=== PATIENT | male | born 1995 ===

== ENCOUNTER 2023-01-19 16:03 | Outpatient (AMB) | payer OTHER, SELFPAY ==
--- NOTE | 2023-01-19 16:10 | MHC.PC.OV ---
Vital Signs 01/19/23 16:14 Height 5 ft 10.5 in Weight 174 lb 8 oz BMI 24.7 BP 124/82 Blood Pressure Location Lt brachial Position Sitting Pulse 52 Pulse Source Pulse Oximeter Pulse Oximetry (%) 98 Oxygen Delivery Method Room Air Intake Visit Reasons: COURT ORDERLY/Hypertension/Med review Folder And Notcher Required: No Accompanied by: Self / Same As Patient Allergies Seasonal Allergies Allergy (Severe, Verified 01/19/23 17:00) Sneezing Medication List - Last Reconciled 01/19/23 by Clifford Mendez MD amlodipine 10 mg PO DAILY hydrochlorothiazide 25 mg PO DAILY metoprolol succinate ER 100 mg PO DAILY Tobacco use date assessed: 01/19/23 Dental Screening Dental Screen Date: 01/19/23 Did you have a dental visit in the last 12 months?: Yes Did you have a dental problem in the last 6 months where you did not have access to dental care?: No Was dental information given to patient?: Patient has dentist HPI COURT ORDERLY/Hypertension/Med review HPI Details Patient comes in today for his annual physical examination and to establish care - is a new patient to the practice States that he has not seen a doctor in a few years now States that he has has been on blood pressure medications that he was started by Dr. Heredia a few years ago although he relates that he's had high blood pressure (recalls being on Lisinopril) since he was about 13 y/o Relates that he has been experiencing some recurrent sharp chest pains over his left lower chest wall area lately - notes that these pain occur irregardless of activity or exertion States that he feels okay otherwise and denies any headaches or dizziness Denies any SOB No nausea/vomiting, no abdominal pain Adds that he gets constipated at times and lately, often has some sharp rectal or prerirectal pain when he is moving his bowels Has not noticed any blood in his stool lately but he would like to see if he can get this checked out - is inquiring as well if he needs to have a colonoscopy done States that as far as he is aware of, he has no significant family history or increased risk of colon cancer He denies any acute urinary symptoms PFSH Medical History Essential hypertension Surgical History No pertinent past surgical history Family History Other Diabetes Hypertension Social History (Updated 01/19/23 @ 17:04 by Clifford Mendez MD) Housing: Apartment Alcohol intake: current Alcohol intake frequency: holidays/special occasions only Patient Tobacco Use Status: Never used Tobacco e-Cigarette/Vaping Use: Currently Using Substance Use Type: Marijuana service: No Current occupational status: employed Current occupational exposures/hazards: No Cognitive needs: No Hearing needs: No Vision needs: No Questionnaire PHQ-9 Over the last 2 weeks, how often have you been bothered by any of the following problems? 1. Little interest or pleasure in doing things: not at all 2. Feeling down, depressed, or hopeless: not at all 3. Trouble falling or staying asleep, or sleeping too much: not at all 4. Feeling tired or having little energy: not at all 5. Poor appetite or overeating: not at all 6. Feeling bad about yourself - or that you are a failure or have let yourself or your family down: not at all 7. Trouble concentrating on things, such as reading the newspaper or watching television: not at all 8. Moving or speaking so slowly that other people could have noticed. Or the opposite - being so fidgety or restless that you have been moving around a lot more than usual: not at all 9. Thoughts that you would be better off or of hurting yourself in some way: not at all Total score: 0 Depression Screening Interpretation: Negative Depression Screening Done: Yes 45850 - PHQ-9 Billing: Yes Source: Developed by Drs. Jose Ortez, Raquel Carlos, Keshav Walls and colleagues, with an educational marianela from [employer]. Thrive Questionnaire Date Thrive assessed: 01/19/23 I am a: Patient What is your living situation today?: I have a steady place to live Within the past 12 months, did the food you bought not last and you didn't have the money to get more?: Never true Within the past 12 months, did you worry whether your food would run out before you got money to buy more?: Never true Do you have trouble paying for medicines?: No Do you have trouble getting transportation to medical appointments?: No Do you have trouble paying your heating and electricity bill?: No Do you have trouble taking care of your child, family member or friend?: No Do you have trouble with day-to-day activities such as bathing, preparing meals, shopping, managing finances, etc.?: No Are you currently unemployed and looking for a job?: No Are you interested in more education?: No Please select the resources that you would like help with: None Currently or been in a relationship where the following occur: no concerns reported AUDIT C Alcohol Use Questionnaire (AUDIT-C) 1. How often do you have a drink containing alcohol?: Monthly or less 2. How many drinks containing alcohol do you have on a typical day when you are drinking?: 1 or 2 3. How often do you have six or more drinks on one occasion?: Never Total Score: 1 Score Reviewed/Action Taken: Yes YUDITH-7 AMB Questionnaire YUDITH-7 Date YUDITH - 7 assessed: 01/19/23 Feeling nervous, anxious, or on edge: 0 = Not at all Not being able to stop or control worryin = Not at all Worrying too much about different things: 0 = Not at all Trouble relaxin = Not at all Being so restless that it is hard to sit still: 0 = Not at all Becoming easily annoyed or irritable: 0 = Not at all Feeling afraid as if something awful might happen: 0 = Not at all Total YUDITH-7 score (0-4 normal; 5-9 mild; 10-14 moderate; 15-21 severe): 0 Source: Developed by Drs. Jose Ortez, Raquel Carlos, Keshav Walls and colleagues, with an educational marianela from [employer]. Review of Systems Const Denies chills, Denies fatigue, Denies fever(s), Denies headache(s), Denies malaise and Denies weakness Eyes Denies blurry vision, Denies change in vision, Denies irritation and Denies itchy eyes ENT Denies dysphagia, Denies dizziness, Denies otalgia, Denies headache(s), Denies nasal congestion, Denies neck pain, Denies odynophagia and Denies sore throat Card Reports chest pain (on and off sharp pains over the left lower chest wall), Denies rapid heart rate, Denies irregular heart rhythm, Denies palpitations and Denies dyspnea Resp Denies chest congestion, Denies cough, Denies dyspnea and Denies wheezing GI Details: reports (+) on and off rectal/perirectal pain during bowel movements Denies abdominal pain, Denies bloating, Denies hematochezia, Reports constipation (on and off), Denies dysphagia, Denies heartburn, Denies diarrhea, Denies nausea, Denies odynophagia and Denies vomiting Denies hematuria, Denies difficulty urinating, Denies dysuria, Denies urinary frequency and Denies urinary urgency Musc Denies back pain, Denies arthralgias, Denies joint swelling, Denies muscle weakness and Denies neck pain Skin/Breast Denies change in pigmentation, Denies lesions, Denies rash and Denies unusual bruising Neuro Denies dizziness, Denies headache(s), Denies paresthesias and Denies weakness Endo Denies fatigue and Denies palpitations Aller/Immun Denies itchy eyes and Denies wheezing Physical exam (Primary Care) Vital Signs: Last Vital Signs Pulse 52 01/19/23 16:14 BP 124/82 01/19/23 16:14 Pulse Ox 98 01/19/23 16:14 Oxygen Delivery Method Room Air 01/19/23 16:14 BMI result Body Mass Index 24.7 Tobacco/Smoking Status: Tobacco use Status Tobacco use date assessed 01/19/23 01/19/23 16:20 Patient Tobacco Use Status Never used Tobacco 01/19/23 17:04 e-Cigarette/Vaping Use Currently Using 01/19/23 17:04 PHQ-9: PHQ-9 Score PHQ-9: Total score 0 01/19/23 17:05 Depression Screening Interpretation: Negative Thrive Assessment: Date of Thrive Assessment Date Thrive assessed 01/19/23 01/19/23 16:20 Currently or been in a relationship where the following occur: no concerns reported Const General: no acute distress, alert and awake Orientation/consciousness: patient oriented x3 HENMT Head: Yes normocephalic and Yes atraumatic Ears: external ears normal, TM's normal bilaterally and EAC's normal General nose exam: No nasal discharge present Face and sinus: Yes normal facial exam and Yes sinuses nontender Teeth and gingiva: dentition normal Throat: Yes posterior oropharynx normal and Yes tonsils normal (no TP congestion) Eyes Eyelids: Yes eyelids normal Conjunctivae: conjunctivae normal Pupils: Equal, round and reactive pupils present EOM: EOMs intact bilaterally Neck Neck: Yes no lymphadenopathy and Yes supple Thyroid: Thyroid normal Resp Auscultation: clear to auscultation bilaterally, no rales and no wheezes Cardio Rate: regular rate Rhythm: regular rhythm Heart sounds: no murmurs GI Palpation (GI): Soft to palpation, nontender and No hepatosplenomegaly present Auscultation: normal bowel sounds General: Yes no CVA tenderness Back/Spine/Pelvis Back: no CVA tenderness Thoracic/Lumbar Spine: thoracic and lumbar spine normal to inspection Skin Lesions: no lesions Rashes: no rashes Neuro General: patient oriented x3, moves all extremities, no focal motor deficits and CN's II-XI intact bilaterally Cranial nerves: Yes Equal, round and reactive pupils present Cognition (Neuro): normal cognition Gait exam (Neuro): Normal gait present Extrem General: Yes no clubbing, cyanosis or edema Assessment and Plan Assessment & Plan (1) Annual physical exam: Code(s): Z00.00 - Encounter for general adult medical examination without abnormal findings Plan: Check labs (2) Essential hypertension: Code(s): I10 - Essential (primary) hypertension Plan: Reinforced low sodium diet Continue Amlodipine 10 mg QD, HCTZ 25 mg QD and Metoprolol ER 100 mg QD - Rx refilled Will send patient for chest x-rays and EKG for risk stratification as he appears to have a strong genetic component for HBP since he's had HTN since he was a teenager (3) Chest pain: Code(s): R07.9 - Chest pain, unspecified Qualifiers: Chest pain type: unspecified Qualified Code(s): R07.9 - Chest pain, unspecified Plan: Patient is advised that his on and off sharp chest pains are most likely musculoskeletal pain, based on his description of his symptoms He is being sent for chest x-rays and EKG as well for risk stratification and advised that these should provide us with additional information regarding his recurrent sharp chest pains (4) Rectal pain: Code(s): K62.89 - Other specified diseases of anus and rectum Plan: Advised that his recent rectal/perirectal pains are most likely due to his on and off constipation and need to strain during bowel movements but per request, will refer him to GI for further evaluation and management Plan Follow up in 3 months Orders: Orders Complete Blood Count Auto Diff 01/20/23 I10 - Essential (primary) hypertension Lipid Panel 01/20/23 E78.00 - Pure hypercholesterolemia, unspecified TSH reflex Free T4 01/20/23 E78.00 - Pure hypercholesterolemia, unspecified Vitamin D 25-OH Total 01/20/23 E55.9 - Vitamin D deficiency, unspecified XR chest 2V 01/20/23 I10 - Essential (primary) hypertension, R07.9 - Chest pain, unspecified Comprehensive [place]. Panel Fast 01/20/23 E78.00 - Pure hypercholesterolemia, unspecified UA CC w/rflx Micro + Cult 01/20/23 R30.0 - Dysuria ECG 12 lead EKG 01/19/23 I10 - Essential (primary) hypertension, R07.9 - Chest pain, unspecified Referrals Gastroenterology Referral K62.89 - Other specified diseases of anus and rectum Medications: New hydrochlorothiazide 25 mg PO DAILY 90 days 90 tabs 1RF metoprolol succinate ER 100 mg PO DAILY 90 days 90 tabs 1RF amlodipine 10 mg PO DAILY 90 days 90 tabs 1RF Coding Level of Care Code New Pt Prev Care 18-39yr([id number] Diagnoses Annual physical exam Z00.00 Essential hypertension I10 Chest pain, unspecified type R07.9 Chest pain type: unspecified Rectal pain K62.89
[2023-01-19 16:14] VITALS: BP 124/82; PULSE 52; O2SAT 98; BMI 24.7
== END 2023-01-19 17:16 | disposition home or self-care (01) ==
PROVIDERS: PCP Internal Medicine; Visit Provider Internal Medicine
DX: Z00.00 Encounter for general adult medical examination without abnormal findings (principal); I10 Essential (primary) hypertension; R07.9 Chest pain, unspecified; K62.89 Other specified diseases of anus and rectum
CPT/HCPCS: 99385

== ENCOUNTER 2023-01-20 07:05 | Outpatient (REF) | payer OTHER, SELFPAY ==
--- NOTE | ~2023-01-20 | XR_ITS ---
EXAMINATION: XR CHEST CLINICAL INFORMATION: Essential hypertension COMPARISON: None available. TECHNIQUE: 2 views of the chest were obtained. FINDINGS: The lungs are well-inflated. The heart size is normal. There is no gross pneumothorax. No pleural effusion. XR/XR chest 2V IMPRESSION: No evidence of pneumonia. Well-inflated lungs.
[2023-01-20 07:27] LABS: MANUAL DIFF FLAG NO
[2023-01-20 07:36] LABS: Basophils Percent Auto 0.5 % (0-2); Eosinophils Absolute Auto 0.3 X10*3/uL (0.0-0.4); Eosinophils Percent Auto 6.1 % (0-4); Hematocrit 46.9 % (42.0-52.0); Hemoglobin 16.4 g/dl (14.0-18.0); Imm Gran Abs Auto 0.01 X10*3/uL (0.00-0.03); Imm Gran Pct Auto 0.2 % (0.0-0.4); Lymphocytes Absolute Auto 1.7 X10*3/uL (1.2-4.9); Lymphocytes Percent Auto 41.4 % (20-40); Mean Corpuscular Hemoglobin 30.7 pg (27.0-33.0); Mean Corpuscular Volume 87.8 fL (80.0-98.0); Monocytes Absolute Auto 0.6 X10*3/uL (0.1-1.2); Monocytes Percent Auto 13.9 % (2-11); Neutrophils Absolute Auto 1.6 x10*3/uL (2.0-8.3); Neutrophils Percent Auto 37.9 % (45-73); Platelet Count 221 X10*3/uL (160-400); Red Blood Count 5.34 X10*6/uL (4.60-5.80); Red Cell Distribution Width 12.7 % (11.0-16.0); White Blood Count 4.1 X10*3/uL (4.8-10.8)
[2023-01-20 08:08] LABS: Alanine Aminotransferase 13 U/L (0-40); Albumin Level 4.5 g/dL (3.5-5.0); Alkaline Phosphatase 58 U/L (39-117); Anion Gap 12 (12-20); Aspartate Amino Transferase 19 U/L (5-37); Bilirubin Total 1.2 mg/dL (0.0-1.0); Blood Urea Nitrogen 16 mg/dL (9-16); Calcium 9.9 mg/dL (8.4-10.2); Carbon Dioxide 28 mmol/L (22-29); Chloride 103 mmol/L (96-108); Cholesterol 220 mg/dL (<200); Estimated Glomerular Filt Rate > 60; Glucose Fasting 83 mg/dL (60-99); HDL Cholesterol 71 mg/dL (>40); LDL Cholesterol Calculated 140 mg/dL (<100); Potassium 3.7 mmol/L (3.3-5.1); Sodium 139 mmol/L (135-145); Total Protein 7.7 g/dL (6.5-8.0); Triglycerides 47 mg/dL (<150)
[2023-01-20 08:26] LABS: TSH reflex Free T4 1.07 uIU/mL (0.32-4.0); Vitamin D 25-OH Total 22.7 ng/mL (>30)
[2023-01-20 11:34] LABS: Appearance Urine Clear; Color Urine Yellow; Glucose Urine UA Negative (Negative); Leukocyte Esterase Urine Negative (Negative); Nitrite Urine Negative (Negative); Specific Gravity - Urine 1.015 (1.005-1.025); Urine Blood Negative (Negative); Urine Ketones Negative (Negative); Urine Protein Negative (Neg-Trace)
== END 2023-01-20 07:06 | disposition home or self-care (01) ==
LOC: HO.XRAY 07:05
PROVIDERS: PCP Internal Medicine; Visit Provider Internal Medicine
DX: R07.9 Chest pain, unspecified (principal); I10 Essential (primary) hypertension; E78.00 Pure hypercholesterolemia, unspecified; E55.9 Vitamin D deficiency, unspecified; R30.0 Dysuria
CPT/HCPCS: 36415; 71046; 80053; 80061; 81003; 82306; 84443; 85025

== ENCOUNTER 2023-05-04 16:04 | Outpatient (AMB) | payer OTHER, SELFPAY ==
[2023-05-04 16:19] VITALS: BP 162/110; PULSE 54; RESP 16; O2SAT 98; BMI 23.1
--- NOTE | 2023-05-04 16:19 | A.OFFPC_ITS ---
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 Accompanied by: Self / Same As Patient Allergies Seasonal Allergies Allergy (Severe, Verified 05/04/23 16:48) Sneezing Medication List - Last Reconciled 05/04/23 by Clifford Mendez MD amlodipine 10 mg PO DAILY 90 days hydrochlorothiazide 25 mg PO DAILY 90 days metoprolol succinate ER 100 mg PO DAILY 90 days Tobacco use date assessed: 05/04/23 Dental Screening Dental Screen Date: 05/04/23 Did you have a dental visit in the last 12 months?: Yes Did you have a dental problem in the last 6 months where you did not have access to dental care?: No Was dental information given to patient?: Patient has dentist HPI 3 month f/u HPI Details Patient comes in today for his follow up visit He recently sustained some injuries wherein he ruptured his left patellar tendon and fractured his left elbow Just had surgery to his left elbow and left knee last month on 04/09/23 at [facility], and states that he was just cleared for rehab and started his physical therapy yesterday His left knee and leg is still in a soft cast/immobilizer and he just had his left elbow cast removed a couple of days ago Patient states that he feels okay otherwise He denies any headaches or dizziness Denies any chest pains, no SOB No nausea/vomiting, no abdominal pain No change in bowel habits noted Would like to go over the results of his labs done back in January 2023 after his annual physical exam visit [facility] Medical History Vitamin D deficiency Pure hypercholesterolemia Essential hypertension Surgical History History of left knee surgery History of elbow surgery Family History Other Diabetes Hypertension Social History Housing: Apartment Alcohol intake: current Alcohol intake frequency: holidays/special occasions only Patient Tobacco Use Status: Never used Tobacco e-Cigarette/Vaping Use: Currently Using Substance Use Type: Marijuana service: No Current occupational status: employed Current occupational exposures/hazards: No Cognitive needs: No Hearing needs: No Vision needs: No Questionnaire PHQ-9 Over the last 2 weeks, how often have you been bothered by any of the following problems? 1. Little interest or pleasure in doing things: not at all 2. Feeling down, depressed, or hopeless: not at all 3. Trouble falling or staying asleep, or sleeping too much: not at all 4. Feeling tired or having little energy: not at all 5. Poor appetite or overeating: not at all 6. Feeling bad about yourself - or that you are a failure or have let yourself or your family down: not at all 7. Trouble concentrating on things, such as reading the newspaper or watching television: not at all 8. Moving or speaking so slowly that other people could have noticed. Or the opposite - being so fidgety or restless that you have been moving around a lot more than usual: not at all 9. Thoughts that you would be better off or of hurting yourself in some way: not at all Total score: 0 Depression Screening Interpretation: Negative Depression Screening Done: Yes 06341 - PHQ-9 Billing: Yes Source: Developed by Drs. Jose Ortez, Raquel Carlos, Keshav Walls and colleagues, with an educational marianela from [employer]. Thrive Questionnaire Date Thrive assessed: 05/04/23 I am a: Patient What is your living situation today?: I have a steady place to live Within the past 12 months, did the food you bought not last and you didn't have the money to get more?: Never true Within the past 12 months, did you worry whether your food would run out before you got money to buy more?: Never true Do you have trouble paying for medicines?: No Do you have trouble getting transportation to medical appointments?: No Do you have trouble paying your heating and electricity bill?: No Do you have trouble taking care of your child, family member or friend?: No Do you have trouble with day-to-day activities such as bathing, preparing meals, shopping, managing finances, etc.?: No Are you currently unemployed and looking for a job?: No Are you interested in more education?: No Please select the resources that you would like help with: None Currently or been in a relationship where the following occur: no concerns reported THRIVE Score: 0 AUDIT C Alcohol Use Questionnaire (AUDIT-C) 1. How often do you have a drink containing alcohol?: Monthly or less 2. How many drinks containing alcohol do you have on a typical day when you are drinking?: 1 or 2 3. How often do you have six or more drinks on one occasion?: Never Total Score: 1 Score Reviewed/Action Taken: Yes YUDITH-7 AMB Questionnaire YUDITH-7 Date YUDITH - 7 assessed: 05/04/23 Feeling nervous, anxious, or on edge: 0 = Not at all Not being able to stop or control worryin = Not at all Worrying too much about different things: 0 = Not at all Trouble relaxin = Not at all Being so restless that it is hard to sit still: 0 = Not at all Becoming easily annoyed or irritable: 0 = Not at all Feeling afraid as if something awful might happen: 0 = Not at all Total YUDITH-7 score (0-4 normal; 5-9 mild; 10-14 moderate; 15-21 severe): 0 Source: Developed by Drs. Jose Ortez, Raquel Carlos, Keshav Walls and colleagues, with an educational marianela from [facility]. YUDITH-7 Assessment Billing YUDITH-7 Assessment Tool: YUDITH-7 Assessment 06756 Review of Systems Const Denies chills, Denies fatigue, Denies fever(s) and Denies headache(s) ENT Denies dysphagia, Denies dizziness, Denies otalgia, Denies headache(s), Denies neck pain, Denies odynophagia and Denies sore throat Card Denies chest pain, Denies palpitations and Denies dyspnea Resp Denies cough and Denies dyspnea GI Details: reports (+) on and off rectal/perirectal pain during bowel movements Denies abdominal pain, Denies constipation, Denies dysphagia, Denies heartburn, Denies diarrhea, Denies nausea, Denies odynophagia and Denies vomiting Denies dysuria, Denies nocturia and Denies urinary frequency Musc Reports arthralgias (over the left elbow and left knee - s/p surgery about a month ago) and Denies neck pain Skin/Breast Denies rash Neuro Denies dizziness and Denies headache(s) Endo Denies fatigue and Denies palpitations Physical exam (Primary Care) Vital Signs: Last Vital Signs Pulse 54 05/04/23 16:19 Resp 16 05/04/23 16:19 BP 162/110 H 05/04/23 16:19 Pulse Ox 98 05/04/23 16:19 Oxygen Delivery Method Room Air 05/04/23 16:19 BMI result Body Mass Index 23.1 Tobacco/Smoking Status: Tobacco use Status Tobacco use date assessed 05/04/23 05/04/23 16:32 Patient Tobacco Use Status Never used Tobacco 05/04/23 16:21 e-Cigarette/Vaping Use Currently Using 05/04/23 16:21 PHQ-9: PHQ-9 Score PHQ-9: Total score 0 05/04/23 16:54 Depression Screening Interpretation: Negative Thrive Assessment: Date of Thrive Assessment Date Thrive assessed 05/04/23 05/04/23 16:32 Currently or been in a relationship where the following occur: no concerns reported Const General: no acute distress and alert HENMT Ears: TM's normal bilaterally and EAC's normal Throat: Yes posterior oropharynx normal and Yes tonsils normal (no TP congestion) Neck Neck: Yes no lymphadenopathy and Yes supple Resp Auscultation: clear to auscultation bilaterally, no rales and no wheezes Cardio Rate: regular rate Rhythm: regular rhythm Heart sounds: no murmurs GI Palpation (GI): Soft to palpation and nontender Auscultation: normal bowel sounds General: Yes no CVA tenderness Back/Spine/Pelvis Back: no CVA tenderness Thoracic/Lumbar Spine: thoracic and lumbar spine normal to inspection Skin Rashes: no rashes Extrem General: Yes no clubbing, cyanosis or edema Left upper extremity: elbow/forearm Details: tenderness (mild, over the left elbow) and normal ROM; no swelling Left lower extremity: knee (left knee/leg is currently in a soft cast/immobilizer - unable to examine) Results Reviewed Results Reviewed: Laboratory Tests 01/20/23 01/20/23 01/20/23 07:23 07:23 07:23 WBC 4.1 L Hgb 16.4 Hct 46.9 Plt Count 221 Sodium 139 Potassium 3.7 Creatinine 1.23 Estimated GFR > 60 Fasting Glucose 83 Calcium 9.9 AST 19 ALT 13 Triglycerides 47 Cholesterol 220 H LDL Cholesterol, Calc 140 H HDL Cholesterol 71 25-OH Vitamin D Total 22.7 L TSH 1.07 Ur Specific [place] Urine Protein Urine Glucose (UA) Urine Blood Urine Nitrite Ur Leukocyte Esterase 01/20/23 01/20/23 01/20/23 07:25 07:25 07:25 WBC Hgb Hct Plt Count Sodium Potassium Creatinine Estimated GFR Fasting Glucose Calcium AST ALT Triglycerides Cholesterol LDL Cholesterol, Calc HDL Cholesterol 25-OH Vitamin D Total TSH Ur Specific [place] 1.015 Urine Protein Negative Urine Glucose (UA) Negative Urine Blood Negative Urine Nitrite Negative Ur Leukocyte Esterase Negative Assessment and Plan Assessment & Plan (1) Essential hypertension: Code(s): I10 - Essential (primary) hypertension Plan: Reinforced low sodium diet - goal is systolic BP of 120 mm or less Patient states that he's had high blood pressure since he was a teenager so there is a strong genetic component likely involved here Continue Amlodipine 10 mg QD, HCTZ 25 mg QD and Metoprolol ER 100 mg QD - Rx refilled (2) Pure hypercholesterolemia: Code(s): E78.00 - Pure hypercholesterolemia, unspecified Plan: Results of his labs done back in January 2023 reviewed and discussed with patient - is advised that his total and LDL cholesterol were elevated and are slightly higher than recommended His total cholesterol was at 220 mg/dl (recommended at <200 mg/dl) but his HDL cholesterol is much higher than average at 71 mg/dl His LDL cholesterol though was at 140 mg/dl and due to his being hypertensive, it should preferably be at least under 100 mg/dl Discussed low cholesterol diet - low cholesterol diet info/printout provided to patient Will have him recheck his labs and fasting lipids in January 2024 for follow up (3) Vitamin D deficiency: Code(s): E55.9 - Vitamin D deficiency, unspecified Plan: Advised that his Vitamin D level was low on his labs done a few months ago Will start him on Vitamin D3 2000 units QD (4) Chest pain: Code(s): R07.9 - Chest pain, unspecified Qualifiers: Chest pain type: unspecified Qualified Code(s): R07.9 - Chest pain, unspecified Plan: RESOLVED - were most likely musculoskeletal pains He was sent for chest x-rays and EKG for risk evaluation/assessment a few months ago but he did not get his EKG done Chest x-rays done back then came out completely normal (5) Rectal pain: Code(s): K62.89 - Other specified diseases of anus and rectum Plan: Advised again that his rectal/perirectal pains were most likely due to his on and off constipation and the need to strain during bowel movements but per request, he was referred to GI for further evaluation and management but states that he was never contacted for an appointment He is advised to try reaching out to [facility] regarding this and also have the office staff help him look into this when he goes to checkout at the conclusion of his visit today Plan To return in January 2024 for his next annual physical examination Orders: Orders Comprehensive [place]. Panel Fast 01/11/24 E78.00 - Pure hypercholesterolemia, un specified, Z00.00 - Encounter for general adult medical examination without abnormal findings Lipid Panel 01/11/24 E78.00 - Pure hypercholesterolemia, unspecified, Z00.00 - Encounter for general adult medical examination without abnormal findings UA CC w/rflx Micro + Cult 01/11/24 R30.0 - Dysuria, Z00.00 - Encounter for general adult medical examination without abnormal findings Complete Blood Count Auto Diff 01/11/24 D64.9 - Anemia, unspecified, Z00.00 - Encounter for general adult medical examination without abnormal findings TSH reflex Free T4 01/11/24 E78.00 - Pure hypercholesterolemia, unspecified, Z00.00 - Encounter for general adult medical examination without abnormal findings Medications: New cholecalciferol (vitamin D3) 50 mcg PO DAILY 90 days 90 caps 3RF E55.9 - Vitamin D deficiency, unspecified Refilled metoprolol succinate ER 100 mg PO DAILY 90 days 90 tabs 1RF hydrochlorothiazide 25 mg PO DAILY 90 days 90 tabs 1RF amlodipine 10 mg PO DAILY 90 days 90 tabs 1RF Coding Level of Care Code Est Pt Level 4 (48895) Diagnoses Essential hypertension I10 Pure hypercholesterolemia E78.00 Vitamin D deficiency E55.9 Chest pain, unspecified type R07.9 Chest pain type: unspecified Rectal pain K62.89 Additional Codes YUDITH-7 Assessment Billing - YUDITH-7 Assessment Tool: YUDITH-7 Assessment 18978 ([id number])
== END 2023-05-04 16:55 | disposition home or self-care (01) ==
PROVIDERS: PCP Internal Medicine; Visit Provider Internal Medicine
DX: I10 Essential (primary) hypertension (principal); E78.00 Pure hypercholesterolemia, unspecified; E55.9 Vitamin D deficiency, unspecified; R07.9 Chest pain, unspecified; K62.89 Other specified diseases of anus and rectum
CPT/HCPCS: 99214

== ENCOUNTER 2024-01-29 17:04 | Outpatient (AMB) | payer OTHER, SELFPAY ==
--- NOTE | 2024-01-29 17:05 | MHC.PC.OV ---
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 Accompanied by: Self / Same As Patient Allergies Seasonal Allergies Allergy (Severe, Verified 01/29/24 17:28) Sneezing Medication List - Last Reconciled 01/29/24 by Clifford Mendez MD amlodipine 10 mg PO DAILY 90 days cholecalciferol (vitamin D3) 50 mcg PO DAILY 90 days hydrochlorothiazide 25 mg PO DAILY 90 days metoprolol succinate ER 100 mg PO DAILY 90 days Tobacco use date assessed: 01/29/24 Dental Screening Dental Screen Date: 01/29/24 Did you have a dental visit in the last 12 months?: No Did you have a dental problem in the last 6 months where you did not have access to dental care?: No Was dental information given to patient?: No HPI PHYSICAL HPI Details Patient comes in today for his follow up visit States that he has been experiencing on and off chest pains or discomfort lately Notes that these tend to occur randomly and do not seem to be directly related to activity or exertion although he has noticed some numbness in his fingers at times when he is working out but does not experience any chest pains when the numbness in his fingers occur States that he has a family history of high blood pressure on his father's side and he is concerned about his own cardiovascular risks He denies any headaches or dizziness Denies any increased shortness of breath No nausea/vomiting, no abdominal pain No change in bowel habits noted Needs all of his Rx refilled He was not able to get his follow-up labs done prior to his appointment today [facility] Medical History Vitamin D deficiency Pure hypercholesterolemia Essential hypertension Surgical History History of left knee surgery History of elbow surgery Family History Other Diabetes Hypertension Social History Housing: Apartment Alcohol intake: current Alcohol intake frequency: holidays/special occasions only Patient Tobacco Use Status: Never used Tobacco e-Cigarette/Vaping Use: Currently Using Substance Use Type: Marijuana service: No Current occupational status: employed Current occupational exposures/hazards: No Cognitive needs: No Hearing needs: No Vision needs: No Questionnaire PHQ-9 Over the last 2 weeks, how often have you been bothered by any of the following problems? 1. Little interest or pleasure in doing things: several days 2. Feeling down, depressed, or hopeless: several days 3. Trouble falling or staying asleep, or sleeping too much: not at all 4. Feeling tired or having little energy: not at all 5. Poor appetite or overeating: not at all 6. Feeling bad about yourself - or that you are a failure or have let yourself or your family down: not at all 7. Trouble concentrating on things, such as reading the newspaper or watching television: not at all 8. Moving or speaking so slowly that other people could have noticed. Or the opposite - being so fidgety or restless that you have been moving around a lot more than usual: not at all 9. Thoughts that you would be better off or of hurting yourself in some way: not at all Total score: 0 Depression Screening Interpretation: Negative Depression Screening Done: Yes 82007 - PHQ-9 Billing: Yes Source: Developed by Drs. Jose Ortez, Raquel Carlos, Keshav Walls and colleagues, with an educational marianela from [employer]. Thrive Questionnaire Date Thrive assessed: 01/29/24 I am a: Patient What is your living situation today?: I have a steady place to live Within the past 12 months, did the food you bought not last and you didn't have the money to get more?: I choose not to answer this question Within the past 12 months, did you worry whether your food would run out before you got money to buy more?: I choose not to answer this question Do you have trouble paying for medicines?: I choose not to answer this question Do you have trouble getting transportation to medical appointments?: I choose not to answer this question Do you have trouble paying your heating and electricity bill?: I choose not to answer this question Do you have trouble taking care of your child, family member or friend?: I choose not to answer this question Do you have trouble with day-to-day activities such as bathing, preparing meals, shopping, managing finances, etc.?: I choose not to answer this question Are you currently unemployed and looking for a job?: I choose not to answer this question Are you interested in more education?: I choose not to answer this question Please select the resources that you would like help with: Childcare Currently or been in a relationship where the following occur: I choose not to answer THRIVE Score: 0 AUDIT C Alcohol Use Questionnaire (AUDIT-C) 1. How often do you have a drink containing alcohol?: Monthly or less 2. How many drinks containing alcohol do you have on a typical day when you are drinking?: 3 or 4 3. How often do you have six or more drinks on one occasion?: Never Total Score: 2 Score Reviewed/Action Taken: Yes YUDITH-7 AMB Questionnaire YUDITH-7 Date YUDITH - 7 assessed: 01/29/24 Feeling nervous, anxious, or on edge: 1 = Several days Not being able to stop or control worryin = Several days Worrying too much about different things: 1 = Several days Trouble relaxin = Several days Being so restless that it is hard to sit still: 1 = Several days Becoming easily annoyed or irritable: 1 = Several days Feeling afraid as if something awful might happen: 0 = Not at all Total YUDITH-7 score (0-4 normal; 5-9 mild; 10-14 moderate; 15-21 severe): 6 Source: Developed by Drs. Jose Ortez, Raquel Carlos, Keshav Walls and colleagues, with an educational marianela from [employer]. Review of Systems Const Denies chills, Denies fatigue, Denies fever(s) and Denies headache(s) Eyes Denies blurry vision, Denies change in vision, Denies irritation and Denies itchy eyes ENT Denies dysphagia, Denies dizziness, Denies otalgia, Denies headache(s), Denies neck pain, Denies odynophagia and Denies sore throat Card Reports chest pain (on and off pain and discomfort - no relation to activity or exertion), Denies palpitations and Denies dyspnea Resp Denies chest congestion, Denies cough and Denies dyspnea GI Denies abdominal pain, Denies constipation, Denies dysphagia, Denies heartburn, Denies diarrhea, Denies nausea, Denies odynophagia and Denies vomiting Denies dysuria, Denies nocturia and Denies urinary frequency Musc Denies back pain, Reports arthralgias (on and off over the left elbow and left knee ), Denies neck pain and Reports numbness (in the fingers at times, especially when working out) Skin/Breast Denies rash Neuro Denies dizziness, Denies headache(s) and Reports numbness (in the fingers at times, especially when working out) Psych Reports anxiety Endo Denies fatigue and Denies palpitations Aller/Immun Denies itchy eyes Physical exam (Primary Care) Vital Signs: Last Vital Signs Pulse 45 L 01/29/24 17:06 BP 120/80 01/29/24 17:06 Pulse Ox 99 01/29/24 17:06 Oxygen Delivery Method Room Air 01/29/24 17:06 BMI result Body Mass Index 24.0 Tobacco/Smoking Status: Tobacco use Status Tobacco use date assessed 01/29/24 01/29/24 17:10 Patient Tobacco Use Status Never used Tobacco 01/29/24 17:10 e-Cigarette/Vaping Use Currently Using 01/29/24 17:10 Depression Screening Interpretation: Negative Thrive Assessment: Date of Thrive Assessment Date Thrive assessed 01/29/24 01/29/24 17:10 Currently or been in a relationship where the following occur: I choose not to answer Const General: no acute distress and alert HENMT Ears: TM's normal bilaterally and EAC's normal Throat: Yes posterior oropharynx normal and Yes tonsils normal (no TP congestion) Neck Neck: Yes no lymphadenopathy and Yes supple Thyroid: Thyroid normal Resp Auscultation: clear to auscultation bilaterally, no rales and no wheezes Cardio Rate: regular rate Rhythm: regular rhythm Heart sounds: no murmurs GI Palpation (GI): Soft to palpation and nontender Auscultation: normal bowel sounds General: Yes no CVA tenderness Back/Spine/Pelvis Back: no CVA tenderness Thoracic/Lumbar Spine: No lumbar spinal tenderness Skin Rashes: no rashes Extrem General: Yes no clubbing, cyanosis or edema Left upper extremity: elbow/forearm Details: tenderness (mild, over the left elbow) and normal ROM; no swelling Left lower extremity: knee (left knee/leg is currently in a soft cast/immobilizer - unable to examine) Coding Level of Care Code Est Pt Level 4 (79982) Complex EM visit Add On G2211 Diagnoses Chest pain, unspecified type R07.9 Chest pain type: unspecified Essential hypertension I10 Pure hypercholesterolemia E78.00 Vitamin D deficiency E55.9 Additional Codes PHQ-9 - 99878 - PHQ-9 Billing: Yes ([id number]) Assessment & Plan Assessment & Plan (1) Chest pain: Code(s): R07.9 - Chest pain, unspecified Category: Medical Qualifiers: Chest pain type: unspecified Qualified Code(s): R07.9 - Chest pain, unspecified Plan: Have discussed with patient that his recent chest pains and numbness in his fingers do not appear to be due to cardiac etiologies but he remains concerned about his overall CV risks due to his strong family Hx Will go ahead and refer him to cardiology for further evaluation and management of his recent chest symptoms (2) Essential hypertension: Code(s): I10 - Essential (primary) hypertension Category: Medical Plan: Reinforced low sodium diet - goal is systolic BP of 120 mm or less Patient relates that he's had high blood pressure since he was a teenager so there is a strong genetic component likely involved here His blood pressure today appears much better controlled compared to his previous visit Continue Amlodipine 10 mg QD, HCTZ 25 mg QD and Metoprolol ER 100 mg QD (3) Pure hypercholesterolemia: Code(s): E78.00 - Pure hypercholesterolemia, unspecified Category: Medical Plan: Patient was not able to get his previously ordered follow-up labs done prior to his appointment today - will have him go and get these done RAGHAV Reminded him that his cholesterol levels last year were elevated, with a total cholesterol 220 mg/dL and LDL cholesterol of 140 mg/dL Reinforce low-cholesterol diet Will have him recheck his labs and fasting lipids RAGHAV for follow up (4) Vitamin D deficiency: Code(s): E55.9 - Vitamin D deficiency, unspecified Category: Medical Plan: Continue Vitamin D3 2000 units QD Plan To return in 6 months for his annual physical examination Orders: Referrals Cardiology Referral E78.00 - Pure hypercholesterolemia, unspecified, I10 - Essential (primary) hypertension, R07.9 - Chest pain, unspecified Medications: Refilled cholecalciferol (vitamin D3) 50 mcg PO DAILY 90 days 90 caps 3RF E55.9 - Vitamin D deficiency, unspecified hydrochlorothiazide 25 mg PO DAILY 90 days 90 tabs 1RF amlodipine 10 mg PO DAILY 90 days 90 tabs 1RF metoprolol succinate ER 100 mg PO DAILY 90 days 90 tabs 1RF
[2024-01-29 17:06] VITALS: BP 120/80; PULSE 45; O2SAT 99; BMI 24.0
== END 2024-01-29 17:45 | disposition home or self-care (01) ==
PROVIDERS: PCP Internal Medicine; Visit Provider Internal Medicine
DX: R07.9 Chest pain, unspecified (principal); I10 Essential (primary) hypertension; E78.00 Pure hypercholesterolemia, unspecified; E55.9 Vitamin D deficiency, unspecified

== ENCOUNTER → 2024-01-29 17:04 | Outpatient (BNVA) | payer OTHER, SELFPAY | PROVIDERS: PCP Internal Medicine; Visit Provider Internal Medicine | DX: R07.9 Chest pain, unspecified (principal); I10 Essential (primary) hypertension; E78.00 Pure hypercholesterolemia, unspecified; E55.9 Vitamin D deficiency, unspecified; Z79.899 Other long term (current) drug therapy | CPT/HCPCS: 96127 ==

== ENCOUNTER 2024-06-17 15:08 | Outpatient (AMB) | payer OTHER, SELFPAY ==
--- NOTE | 2024-06-17 15:09 | MHC.OFFVIS ---
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 He is a pleasant 28-year-old male who has longstanding history of hypertension since his teen years. He was recently now recognized to treated in his currently taking all his medications. He has also modified his lifestyle as watching what he eats including salt in his diet and has been exercise regularly running on a frequent basis. He said when he runs and he is at high level running he does get left scapular discomfort which then he continues to run through and the symptoms resolve. Patient has had these symptoms for long time but continues to get them despite good control of his blood pressure. He also gets intermittent episodes of left-sided chest discomfort especially after he eats greasy foods. He has not had any significant symptoms of breath. No orthopnea, PND, leg edema. He occasionally feels fluttering in his chest but this has become much less frequent. He has very motivated to continue with aggressive medical therapy and says he has been taking his medications regularly. [facility] Medical History Vitamin D deficiency Pure hypercholesterolemia Essential hypertension Surgical History History of left knee surgery History of elbow surgery Family History Other Diabetes Hypertension Social History Housing: Apartment Alcohol intake: current Alcohol intake frequency: holidays/special occasions only Patient Tobacco Use Status: Never used Tobacco e-Cigarette/Vaping Use: Currently Using Substance Use Type: Marijuana service: No Current occupational status: employed Current occupational exposures/hazards: No Cognitive needs: No Hearing needs: No Vision needs: No Review of Systems Const Denies chills, Denies daytime sleepiness, Denies fatigue, Denies fever(s), Denies frequent falls, Denies poor appetite, Denies snoring, Denies stops breathing during sleep, Denies weakness, Denies weight gain and Denies weight loss Eyes Denies loss of vision ENT Denies dizziness and Denies hearing loss Card Denies chest pain, Denies claudication, Denies leg edema, Denies lightheadedness, Denies palpitations, Denies dyspnea, Denies dyspnea on exertion and Denies orthopnea Resp Denies cough, Denies excessive phlegm production, Denies dyspnea, Denies dyspnea on exertion, Denies snoring and Denies wheezing GI Denies abdominal pain, Denies hematochezia, Denies change in bowel habits, Denies nausea and Denies vomiting Denies dysuria and Denies urinary frequency Musc Denies arthralgias, Denies muscle weakness, Denies numbness and Denies other (frequent falls) Skin/Breast Denies nail changes and Denies rash Neuro Denies Abnormal speech present, Denies dizziness, Denies frequent falls, Denies loss of vision, Denies memory loss, Denies numbness and Denies weakness Psych Denies depression and Denies memory loss Endo Denies fatigue and Denies palpitations Rik/Lymph Reports easy bruising and Reports other (anemia) Aller/Immun Denies wheezing Physical Exam Vital Signs: Last Vital Signs Pulse 53 06/17/24 15:10 BP 120/74 06/17/24 15:10 BMI result Body Mass Index 23.7 Const General: cooperative, comfortable, no acute distress, well developed, alert, awake, Physically active and well groomed Nutritional Appearance: well nourished and thin Orientation/consciousness: patient oriented x3 Limitations: no limitations HEENT Head: Yes normocephalic and Yes atraumatic Neck Neck: Yes trachea midline, Yes supple and Yes no JVD Resp Effort & Inspection: normal respiratory effort Auscultation: clear to auscultation bilaterally Cardio Jugular venous distension: no JVD Palpation: normal PMI Rate: regular rate Rhythm: regular rhythm Heart sounds: S1 normal heart sound present, S2 normal heart sound present, no click, no gallops, no murmurs and no rubs GI Auscultation: normal bowel sounds Skin General skin exam: no rashes or lesions noted Neuro General: patient oriented x3 and no focal motor deficits Speech: No Abnormal speech present Extrem General: Yes no clubbing, cyanosis or edema Psych Appearance: grossly normal Office Procedures EKG Details: EKG shows normal sinus rhythm with minimal voltage criteria for LVH with rightward axis otherwise normal EKG 32480-[id number], Complete Assessment & Plan Assessment & Plan (1) Chest pain: Code(s): R07.9 - Chest pain, unspecified Category: Medical Qualifiers: Chest pain type: unspecified Qualified Code(s): R07.9 - Chest pain, unspecified Plan: Patient with atypical chest pain syndrome some of his symptoms happen when he was running. This is somewhat concerning. Myocardial ischemia is less likely given his age although he has had hypertension for long time. Would suggest a treadmill stress test. Also possible this is could be related due to hypertensive cardiomyopathy and/or hypertrophic cardiomyopathy. Suggest to evaluate with an echocardiogram to assess for LV wall thickness and LV systolic and diastolic function to evaluate for any end-organ damage related to hypertension. This was discussed with him. He understands agrees. Will schedule these tests in near future. (2) Essential hypertension: Code(s): I10 - Essential (primary) hypertension Category: Medical Plan: Significant hypertension requiring 3 drugs to control his blood pressure. Blood pressure is currently well optimized. Encouraged to continue to aggressively treat his blood pressure in the long run was discussed with him. Importance of good blood pressure control to reduce risk of developing end-organ damage was discussed with him as well. Low-salt diet was discussed encouraged to continue compliance with medications. Also encouraged to monitor blood pressure at home and maintain a log intermittently. Advised to bring his log next time to the office visit along with his blood pressure machine to correlate. He said he has had workup for secondary hypertension in the past. Will review the same. Will follow with him in 6 weeks time, sooner p.r.n.. Thank you for allowing me to partake in his care Coding Level of Care Code New Pt Level 4 (59788) Complex EM visit Add On G2211 Diagnoses Chest pain, unspecified type R07.9 Chest pain type: unspecified Essential hypertension I10 CPT Codes EKG - CPT: 38411-[id number], Complete ([id number])
[2024-06-17 15:10] VITALS: BP 120/74; PULSE 53; BMI 23.7
--- OUTSIDE RECORDS SUMMARY | 2024-06-17 18:26 | XMS_ITS | Encounter Summary ---
Author Organization [facility], Address [address] [place] [address] Phone Care Team Providers Care Shop Mechanic Helper Name Role Phone Nesha Goodwin MD Primary Care Provider Encounter Details Date Type Department Care Team ([facility] st Contact Info) Description 08/22/2022 Documentation Only [facility], [address] [place] [address] Lizzie Hampton [address] [place] [address] Social History Tobacco Use Types Packs/Day Years Used Date Smoking Tobacco: Never Alcohol Use Standard Drinks/Week Comments No 0 (1 standard drink = 0.6 oz pur e alcohol) Sex and Gender Information Value Date Recorded Sex Assigned at Not on file Legal Sex Male 4:33 PM EST Gender Identity Not on file Sexual Orientation Not on file documented as of this encounter Plan of Treatment Not on file documented as of this encounter Visit Diagnoses Not on filedocumented in this encounter Care Teams Shop Mechanic Helper Relationship Specialty Start Date End Date Nesha Goodwin MD [address] [facility] [address] [place], [place] PCP - General 01/07/19 documented as of this encounter
--- OUTSIDE RECORDS SUMMARY | 2024-06-17 18:26 | XMS_ITS | Clinical Summary ---
Author Organization [facility] Address [address] [address] Care Team Providers Care Wax Ball Knock Out Worker Name Role Phone Nesha Goodwin MD Primary Care Provider [phone] Allergies No known active allergies Medications fluticasone (FLONASE) 50 MCG/ACT nasal spray Administer 1 spray into each nostril 2 (two) times a day Active lisinopril (PRINIVIL,ZESTR IL) 10 MG tablet Take 1 tablet by mouth 1 (one) time each day 6 Active Spacer/Aero-Hol ding Chambers (Valved Holding Chamber) device USE WITH MDI 1 Active Flovent HFA 110 MCG/ACT inhaler Inhale 2 puffs 2 (two) times a day 1 Active metoprolol succinate XL (TOPROL-XL) 100 MG 24 hr tablet TAKE 1 TABLET(100 MG) BY MOUTH 1 TIME EACH DAY. DO NOT CRUSH OR CHEW 90 tablet 3 2 Active amLODIPine (NORVASC) 10 MG tablet TAKE 1 TABLET(10 MG) BY MOUTH 1 TIME EACH DAY 90 tablet 3 2 Active hydroCHLOROthia zide 25 MG tablet TAKE 1 TABLET(25 MG) BY MOUTH 1 TIME EACH DAY 90 tablet 3 3 Active Active Problems Problem Noted Date Diagnosed Date Chronic kidney disease 03/31/2019 Benign essential hypertension 03/31/2019 Family History Medical History Relation Comments Cancer Father grandfather Hypertension Father Diabetes Mother Relation Status Comments Father Alive Mother Alive Social History Tobacco Use Types Packs/Day Years Used Date Smoking Tobacco: Never Alcohol Use Standard Drinks/Week Comments No 0 (1 standard drink = 0.6 oz pur e alcohol) Sex and Gender Information Value Date Recorded Sex Assigned at Not on file Legal Sex Male 4:33 PM EST Gender Identity Not on file Sexual Orientation Not on file Last Filed Vital Signs Vital Sign Reading Time Taken Comments Blood Pressure 138/60 06/08/2020 4:00 PM EDT Pulse - - Temperature - - Respiratory Rate - - Oxygen Saturation - - Inhaled Oxygen Concentration - - Weight 78.5 kg (173 lb) 06/08/2020 4:00 PM EDT Height 180.3 cm (5' 11 ) 03/12/2018 12:00 PM EST Body Mass Index 24.13 03/12/2018 12:00 PM EST Plan of Treatment Health Maintenance Due Date Last Done Comments Hepatitis B Vaccine (1 of 3 - 19+ 3-dose series) 11/09 Pneumococcal Vaccine: Peds ( 0 to 5 Years) and At-Risk Patients (6 to 49 Years) (1 of 2 - PCV) 2013 Influenza Vaccine (Season Ended) 2024 Insurance [facility] Care Teams Wax Ball Knock Out Worker Relationship Specialty Start Date End Date Nesha Goodwin MD [address] [facility] [address] [place], [place] PCP - General 01/07/19
--- OUTSIDE RECORDS SUMMARY | 2024-06-17 18:26 | XMS_ITS | Encounter Summary ---
Author Organization [facility], Address [address] [place] [address] Phone Care Team Providers Care Telephone Order Dispatcher Name Role Phone Nesha Goodwin MD Primary Care Provider + [phone] Reason for Visit * Reason Comments Med Refill Encounter Details Date Type Department Care Team ([facility] st Contact Info) Description 07/07/2023 Refill [facility] [address] [place] [address] Clay Gilmore MD [address] [facility] [place] [id number] Social History Tobacco Use Types Packs/Day Years Used Date Smoking Tobacco: Never Alcohol Use Standard Drinks/Week Comments No 0 (1 standard drink = 0.6 oz pur e alcohol) Sex and Gender Information Value Date Recorded Sex Assigned at Not on file Legal Sex Male 4:33 PM EST Gender Identity Not on file Sexual Orientation Not on file documented as of this encounter Miscellaneous Notes * Telephone Encounter - Luz Thomas - 07/09/2023 10:07 AM EDT PATIENT NEEDS APPT HASN'T BEEN SEEN SINCE 2020 documented in this encounter Plan of Treatment Not on file documented as of this encounter Visit Diagnoses Not on filedocumented in this encounter Care Teams Telephone Order Dispatcher Relationship Specialty Start Date End Date Nesha Goodwin MD [address] [place], [place] PCP - General 01/07/19 documented as of this encounter
== END 2024-06-17 15:42 | disposition home or self-care (01) ==
LOC: HO.HCS 15:08
PROVIDERS: PCP Internal Medicine; Visit Provider Internal Medicine Cardiovascular Disease
DX: R07.9 Chest pain, unspecified (principal); I10 Essential (primary) hypertension
CPT/HCPCS: 93010; 99204

== ENCOUNTER → 2024-06-17 15:08 | Outpatient (BNVA) | payer OTHER, SELFPAY | PROVIDERS: PCP Internal Medicine; Visit Provider Internal Medicine Cardiovascular Disease | DX: I10 Essential (primary) hypertension (principal); R07.9 Chest pain, unspecified | CPT/HCPCS: 93005 ==

== ENCOUNTER 2024-07-08 17:19 | Outpatient (AMB) | payer OTHER, SELFPAY ==
[2024-07-08 17:22] VITALS: BP 128/92; PULSE 72; RESP 16; TEMP 36.4; O2SAT 97; BMI 23.6
--- NOTE | 2024-07-08 17:22 | MHC.PC.OV ---
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 Accompanied by: Self / Same As Patient Allergies Seasonal Allergies Allergy (Severe, Verified 07/08/24 17:33) Sneezing Medication List - Last Reconciled 07/08/24 by Clifford Mendez MD amlodipine 10 mg PO DAILY 90 days cholecalciferol (vitamin D3) 50 mcg PO DAILY 90 days hydrochlorothiazide 25 mg PO DAILY 90 days metoprolol succinate ER 100 mg PO DAILY 90 days Tobacco use date assessed: 07/08/24 Dental Screening Dental Screen Date: 07/08/24 Did you have a dental visit in the last 12 months?: Yes Did you have a dental problem in the last 6 months where you did not have access to dental care?: No Was dental information given to patient?: Patient has dentist HPI annual exam HPI Details Patient comes in today for his annual physical examination States that he feels okay He denies any headaches or dizziness Denies any chest pains recently but still has on and off numbness in his fingers when he is working out at the gym, no increased SOB No nausea/vomiting, no abdominal pain No change in bowel habits noted Denies any acute urinary symptoms He was seen by cardiology for evaluation of his symptoms a few weeks ago and is currently awaiting scheduling for stress testing and echocardiogram [facility] Medical History Vitamin D deficiency Pure hypercholesterolemia Essential hypertension Surgical History History of left knee surgery History of elbow surgery Family History Other Diabetes Hypertension Social History Housing: Apartment Alcohol intake: current Alcohol intake frequency: holidays/special occasions only Patient Tobacco Use Status: Never used Tobacco e-Cigarette/Vaping Use: Former Use Substance Use Type: Marijuana service: No Current occupational status: employed Current occupational exposures/hazards: No Cognitive needs: No Hearing needs: No Vision needs: Yes (Glasses) Questionnaire PHQ-9 Over the last 2 weeks, how often have you been bothered by any of the following problems? 1. Little interest or pleasure in doing things: several days 2. Feeling down, depressed, or hopeless: several days 3. Trouble falling or staying asleep, or sleeping too much: several days 4. Feeling tired or having little energy: several days 5. Poor appetite or overeating: not at all 6. Feeling bad about yourself - or that you are a failure or have let yourself or your family down: several days 7. Trouble concentrating on things, such as reading the newspaper or watching television: not at all 8. Moving or speaking so slowly that other people could have noticed. Or the opposite - being so fidgety or restless that you have been moving around a lot more than usual: not at all 9. Thoughts that you would be better off or of hurting yourself in some way: not at all Total score: 5 Depression Screening Interpretation: Positive Depression Screening Follow-up: Follow-up Visit Requested Depression Screening Done: Yes 08208 - PHQ-9 Billing: Yes Source: Developed by Drs. Jose Ortez, Raquel Carlos, Keshav Walls and colleagues, with an educational marianela from [employer]. Thrive Questionnaire Date Thrive assessed: 07/08/24 I am a: Patient What is your living situation today?: I have a steady place to live Within the past 12 months, did the food you bought not last and you didn't have the money to get more?: I choose not to answer this question Within the past 12 months, did you worry whether your food would run out before you got money to buy more?: I choose not to answer this question Do you have trouble paying for medicines?: I choose not to answer this question Do you have trouble getting transportation to medical appointments?: I choose not to answer this question Do you have trouble paying your heating and electricity bill?: I choose not to answer this question Do you have trouble taking care of your child, family member or friend?: I choose not to answer this question Do you have trouble with day-to-day activities such as bathing, preparing meals, shopping, managing finances, etc.?: I choose not to answer this question Are you currently unemployed and looking for a job?: I choose not to answer this question Are you interested in more education?: I choose not to answer this question Please select the resources that you would like help with: None Currently or been in a relationship where the following occur: I choose not to answer THRIVE Score: 0 AUDIT C Alcohol Use Questionnaire (AUDIT-C) 1. How often do you have a drink containing alcohol?: Monthly or less 2. How many drinks containing alcohol do you have on a typical day when you are drinking?: 3 or 4 3. How often do you have six or more drinks on one occasion?: Never Total Score: 2 Score Reviewed/Action Taken: Yes YUDITH-7 AMB Questionnaire YUDITH-7 Date YUDITH - 7 assessed: 07/08/24 Feeling nervous, anxious, or on edge: 0 = Not at all Not being able to stop or control worryin = Not at all Worrying too much about different things: 0 = Not at all Trouble relaxin = Not at all Being so restless that it is hard to sit still: 0 = Not at all Becoming easily annoyed or irritable: 0 = Not at all Feeling afraid as if something awful might happen: 0 = Not at all Total YUDITH-7 score (0-4 normal; 5-9 mild; 10-14 moderate; 15-21 severe): 0 Source: Developed by Drs. Jose Ortez, Raquel Carlos, Keshav Walls and colleagues, with an educational marianela from [employer]. YUDITH-7 Assessment Billing YUDITH-7 Assessment Tool: YUDITH-7 Assessment 40293 Review of Systems Const Denies chills, Reports difficulty sleeping (has a baby at home currently), Denies fatigue, Denies fever(s), Denies headache(s), Denies malaise and Denies weakness Eyes Denies blurry vision, Denies change in vision, Denies irritation and Denies itchy eyes ENT Denies dysphagia, Denies dizziness, Denies otalgia, Denies headache(s), Denies nasal congestion, Denies neck pain, Denies odynophagia and Denies sore throat Card Reports chest pain (more of a discomfort in his chest, with on and off numbness in fingers), Denies rapid heart rate, Denies irregular heart rhythm, Denies palpitations and Denies dyspnea Resp Denies chest congestion, Denies cough, Denies dyspnea and Denies wheezing GI Denies abdominal pain, Denies bloating, Denies constipation, Denies dysphagia, Denies heartburn, Denies diarrhea, Denies nausea, Denies odynophagia and Denies vomiting Denies hematuria, Denies difficulty urinating, Denies dysuria, Denies urinary frequency and Denies urinary urgency Musc Denies back pain, Denies arthralgias, Denies joint swelling, Denies muscle weakness and Denies neck pain Skin/Breast Denies change in pigmentation, Denies lesions, Denies rash and Denies unusual bruising Neuro Denies dizziness, Denies headache(s), Denies paresthesias and Denies weakness Psych Reports depression (lately - mild) Endo Denies fatigue and Denies palpitations Aller/Immun Denies itchy eyes and Denies wheezing Physical exam (Primary Care) Vital Signs: Last Vital Signs Temp 97.5 F 07/08/24 17:22 Pulse 72 07/08/24 17:22 Resp 16 07/08/24 17:22 BP 130/88 07/08/24 17:38 Pulse Ox 97 07/08/24 17:22 Oxygen Delivery Method Room Air 07/08/24 17:22 BMI result Body Mass Index 23.6 Tobacco/Smoking Status: Tobacco use Status Tobacco use date assessed 07/08/24 07/08/24 17:31 Patient Tobacco Use Status Never used Tobacco 07/08/24 17:31 e-Cigarette/Vaping Use Former Use 07/08/24 17:31 PHQ-9: PHQ-9 Score PHQ-9: Total score 5 07/08/24 17:37 Depression Screening Interpretation: Positive Depression Screening Follow-up: Follow-up Visit Requested Thrive Assessment: Date of Thrive Assessment Date Thrive assessed 07/08/24 07/08/24 17:31 Currently or been in a relationship where the following occur: I choose not to answer Const General: no acute distress, alert and awake Orientation/consciousness: patient oriented x3 HENMT Head: Yes normocephalic and Yes atraumatic Ears: external ears normal, TM's normal bilaterally and EAC's normal General nose exam: No nasal discharge present Face and sinus: Yes normal facial exam and Yes sinuses nontender Teeth and gingiva: dentition normal Throat: Yes posterior oropharynx normal and Yes tonsils normal (no TP congestion) Eyes Eyelids: Yes eyelids normal Conjunctivae: conjunctivae normal Pupils: Equal, round and reactive pupils present EOM: EOMs intact bilaterally Neck Neck: Yes no lymphadenopathy and Yes supple Thyroid: Thyroid normal Resp Auscultation: clear to auscultation bilaterally, no rales and no wheezes Cardio Rate: regular rate Rhythm: regular rhythm Heart sounds: no murmurs GI Palpation (GI): Soft to palpation, nontender and No hepatosplenomegaly present Auscultation: normal bowel sounds General: Yes no CVA tenderness Back/Spine/Pelvis Back: no CVA tenderness Thoracic/Lumbar Spine: thoracic and lumbar spine normal to inspection Skin Lesions: no lesions Rashes: no rashes Neuro General: patient oriented x3, moves all extremities, no focal motor deficits and CN's II-XI intact bilaterally Cranial nerves: Yes Equal, round and reactive pupils present Cognition (Neuro): normal cognition Gait exam (Neuro): Normal gait present Extrem General: Yes no clubbing, cyanosis or edema Coding Level of Care Code Est Pt Prev Care 18-39y(04071) Diagnoses Annual physical exam Z00.00 Essential hypertension I10 Pure hypercholesterolemia E78.00 Chest pain, unspecified type R07.9 Chest pain type: unspecified Vitamin D deficiency E55.9 Additional Codes YUDITH-7 Assessment Billing - YUDITH-7 Assessment Tool: YUDITH-7 Assessment 27245 ([id number]) PHQ-9 - 91406 - PHQ-9 Billing: Yes ([id number]) Assessment & Plan Assessment & Plan (1) Annual physical exam: Code(s): Z00.00 - Encounter for general adult medical examination without abnormal findings Category: Medical Plan: Check labs - patient is advised to get these done RAGHAV as it has been almost 2 years now since he had labs done (2) Essential hypertension: Code(s): I10 - Essential (primary) hypertension Category: Medical Plan: Reinforced low sodium diet - goal is systolic BP of 120 mm or less Patient relates that he's had high blood pressure since he was a teenager so there is a strong genetic component likely involved here Continue Amlodipine 10 mg QD, HCTZ 25 mg QD and Metoprolol ER 100 mg QD (3) Pure hypercholesterolemia: Code(s): E78.00 - Pure hypercholesterolemia, unspecified Category: Medical Plan: Patient was not able to get his previously ordered follow-up labs done prior to his appointment today - will have him go and get these done RAGHAV Reminded him that his cholesterol levels last year were elevated, with a total cholesterol 220 mg/dL and LDL cholesterol of 140 mg/dL Reinforce low-cholesterol diet Will have him recheck his labs and fasting lipids RAGHAV for follow up (4) Chest pain: Code(s): R07.9 - Chest pain, unspecified Category: Medical Qualifiers: Chest pain type: unspecified Qualified Code(s): R07.9 - Chest pain, unspecified Plan: He was seen by cardiology for evaluation a few weeks ago and is currently awaiting scheduling for his echocardiogram and treadmill stress testing Cardiology reportedly has concerns about the possibility of hypertensive cardiomyopathy (5) Vitamin D deficiency: Code(s): E55.9 - Vitamin D deficiency, unspecified Category: Medical Plan: Continue Vitamin D3 2000 units QD Plan Follow up in 6 months Orders: Orders TSH reflex Free T4 07/08/24 E78.00 - Pure hypercholesterolemia, unspecified, Z00.00 - Encounter for general adult medical examination without abnormal findings UA CC w/rflx Micro + Cult 07/08/24 R30.0 - Dysuria, Z00.00 - Encounter for general adult medical examination without abnormal findings Vitamin D 25-OH Total 07/08/24 E55.9 - Vitamin D deficiency, unspecified, Z00.00 - Encounter for general adult medical examination without abnormal findings Complete Blood Count Auto Diff 07/08/24 D64.9 - Anemia, unspecified, Z00.00 - Encounter for general adult medical examination without abnormal findings Comprehensive [place]. Panel Fast 07/08/24 E78.00 - Pure hypercholesterolemia, unspecified, Z00.00 - Encounter for general adult medical examination without abnormal findings Lipid Panel 07/08/24 E78.00 - Pure hypercholesterolemia, unspecified, Z00.00 - Encounter for general adult medical examination without abnormal findings
--- OUTSIDE RECORDS SUMMARY | 2024-07-08 17:22 | XMS_ITS | Encounter Summary ---
Author Organization [facility], Address [address] [place] [address] Phone Care Team Providers Care Double Bass Player Name Role Phone Nesha Goodwin MD Primary Care Provider Encounter Details Date Type Department Care Team ([facility] st Contact Info) Description 08/22/2022 Documentation Only [facility], [address] [place] [address] Lizzie Hampton [address] [place] [address] Social History Tobacco Use Types [...] on filedocumented in this encounter Care Teams Double Bass Player Relationship Specialty Start Date End Date Nesha Goodwin MD [address] [facility] [address] [place], [place] PCP - General 01/07/19 documented as of this encounter
--- OUTSIDE RECORDS SUMMARY | 2024-07-08 17:22 | XMS_ITS | Encounter Summary ---
Author Organization [facility], Address [address] [place] [address] Phone Care Team Providers Care Insurance Customer Service Specialist Name Role Phone Nesha Goodwin MD Primary Care Provider + [phone] Reason for Visit * Reason Comments Med Refill Encounter Details Date Type Department Care Team ([facility] st Contact Info) Description 07/07/2023 Refill [facility] [address] [place] [address] Clay Gilmore MD [address] [facility] [place] [id number] Social History Tobacco Use Types Packs/Day Years [...] on filedocumented in this encounter Care Teams Insurance Customer Service Specialist Relationship Specialty Start Date End Date Nesha Goodwin MD [address] [place], [place] PCP - General 01/07/19 documented as of this encounter
[2024-07-08 17:38] VITALS: BP 130/88
== END 2024-07-08 17:42 | disposition home or self-care (01) ==
LOC: HO.HMCH 17:20
PROVIDERS: PCP Internal Medicine; Visit Provider Internal Medicine
DX: Z00.00 Encounter for general adult medical examination without abnormal findings (principal); I10 Essential (primary) hypertension; E78.00 Pure hypercholesterolemia, unspecified; R07.9 Chest pain, unspecified; E55.9 Vitamin D deficiency, unspecified

== ENCOUNTER → 2024-07-08 17:19 | Outpatient (BNVA) | payer OTHER, SELFPAY | PROVIDERS: PCP Internal Medicine; Visit Provider Internal Medicine | DX: Z00.00 Encounter for general adult medical examination without abnormal findings (principal); I10 Essential (primary) hypertension; E78.00 Pure hypercholesterolemia, unspecified; R07.9 Chest pain, unspecified; E55.9 Vitamin D deficiency, unspecified; Z79.899 Other long term (current) drug therapy | CPT/HCPCS: 96127 ==